=== PATIENT | male | born 1980 | race Caucasian/White ===

== ENCOUNTER 2016-03-23 20:46 | Emergency (ER) | payer SELFPAY ==
[~2016-03-23] VITALS: Ht 182.9 cm; Wt 106.3 kg
[2016-03-23 21:11] VITALS: BP 116/73; PULSE 91; RESP 16; TEMP 98.9; O2SAT 96
[2016-03-23] MEDS ORDERED: BACT800T5 PO (22:31)
[2016-03-23] MEDS ORDERED: CEPH-460 PO (22:31)
[2016-03-23] MEDS ORDERED: IBUP800T23 PO (22:31)
--- NOTE | 2016-03-23 22:31 | PD ---
HPI Chief Complaint: Skin Problem Time Seen by Provider: 22:30 Travel History International Travel<30 days: No Contact w/Intl Traveler<30days: No Traveled to known affect area: No History of Present Illness HPI 35-year-old male presents to the emergency Department with complaint of a lump in his left armpit times one week. He said it is gotten bigger in the last 2 days. He denies fever, chills, nausea, vomiting. Denies paresthesias, loss of sensation, decreased range of motion, decreased strength to affected extremity. Says he thought he had an ingrown hair about a week ago and tried popping up in a came to a head and the area has become bigger and more painful. Has not taken any medications or tried any treatments to alleviate symptoms. Did wrap and Ion bandage around the area today to support it while he worked. Denies allergies. Denies significant past medical history. Denies being up-to-date on his tetanus vaccination. No other modifying factors or associated signs and symptoms. PFSH Past Medical History Medical History: Denies Significant Hx Diminished Hearing: No Immunizations Current: Yes Tetanus Vaccination: > 5 Years Influenza Vaccination: No Past Surgical History Surgical History: No Previous Surgery Social History Alcohol Use: No Tobacco Use: No Substance Use: No Allergies-Medications (Allergen,Severity, Reaction): Coded Allergies: No Known Allergies (Unverified , 03/23/16) Reported Meds & Prescriptions Reported Meds & Active Scripts Active Ibuprofen 800 Mg Tab 800 Mg PO Q6HR PRN Bactrim DS (Sulfamethoxazole-Trimethoprim) 800-160 Mg Tab 1 Tab PO BID 10 Days Keflex (Cephalexin) 500 Mg Cap 500 Mg PO Q6H 10 Days Review of Systems Except as stated in HPI: all other systems reviewed are Neg Physical Exam Narrative GENERAL: Well-nourished, well-developed male patient, in no acute distress; afebrile, nontoxic-appearing SKIN: There is an indurated area in the left axilla Which measures about 3 cm in diameter. It is fluctuant but there is no pointing or drainage. There is a zone of inflammation around it but no lymphangitis. HEAD: Atraumatic. Normocephalic. EYES: Pupils equal and round. No scleral icterus. No injection or drainage. ENT: Mucosa pink and moist. Airway patent. NECK: Trachea midline. CARDIOVASCULAR: Regular rate. RESPIRATORY: No accessory muscle use. GASTROINTESTINAL: Rounded. MUSCULOSKELETAL: No obvious deformities. No clubbing. No cyanosis. No edema. NEUROLOGICAL: Awake and alert. Oriented 3. No obvious cranial nerve deficits. Motor grossly within normal limits. Normal speech. PSYCHIATRIC: Appropriate mood and affect; insight and judgment normal. Data Data Last Documented VS Vital Signs Date Time Temp Pulse Resp B/P Pulse Ox O2 Delivery O2 Flow Rate FiO2 03/23/16 21:11 98.9 91 16 116/73 96 MDM Medical Decision Making Medical Screen Exam Complete: Yes Emergency Medical Condition: Yes Medical Record Reviewed: Yes Differential Diagnosis Abscess, cellulitis, folliculitis Narrative Course 35-year-old male with approximately 3 cm abscess to the left axilla that is fluctuant. The patient is refusing for incision and drainage of the abscess. He is opting for oral antibiotics only. I discussed reasons to return to the emergency department in great detail and the patient verbalizes understanding and agreement. Area of erythema surrounding the abscess was marked with a surgical marker. Patient verbalized understanding and agreement. He is afebrile and nontoxic-appearing. Vital signs are stable. Keflex, Bactrim, ibuprofen prescribed for home. Patient is medically cleared and stable for discharge. Discussed reasons to return to the emergency department. Instructed patient to follow up with primary care provider. Patient agrees with treatment plan. The patients vital signs are stable and the patient is stable for outpatient follow-up and treatment. Patient discharged home, stable and in no acute distress. Diagnosis Primary Impression: Abscess of left axilla Referrals: Primary Care Physician Patient Instructions: Abscess (ED), Abscess Follow-up (ED), Abscess Incision and Drainage (ED), General Instructions Additional Instructions: Complete full course of antibiotics Warm compresses to the affected area Keep area clean and dry Ibuprofen or Tylenol as directed and as needed for pain and inflammation Follow-up with primary care provider Return to emergency department immediately with worsening of symptoms Med/Other Pt SpecificInfo: Prescription(s) given Scripts Ibuprofen 800 Mg Rze750 Mg PO Q6HR PRN (PAIN) #30 TAB Ref 0 Prov:Padma Mcginnis [employer] 03/23/16 Sulfamethoxazole-Trimethoprim (Bactrim DS)800-160 Mg Tab1 Tab PO BID 10 Days Ref 0 Prov:Padma Mcginnis [employer] 03/23/16 Cephalexin (Keflex)500 Mg Asi024 Mg PO Q6H 10 Days Ref 0 Prov:Padma Mcginnis 03/23/16 Disposition: 01 DISCHARGE HOME Condition: Stable Padma Mcginnis Mar 23, 2016 22:31
== END 2016-03-23 22:46 | disposition home or self-care (01) ==
LOC: PHED 20:46 → PHEFT 22:46
DX: L02.412 Cutaneous abscess of left axilla (principal)
CPT/HCPCS: 99282